=== PATIENT | female | born 1945 | race Caucasian/White ===

== ENCOUNTER 2017-06-06 06:17 | Inpatient (IN) | payer OTHER, BC ==
[~2017-06-06] VITALS: Ht 170.2 cm; Wt 100.7 kg
[2017-06-06 06:44] LABS: HEMATOCRIT 37.5 % (36.0-46.0); MCH 30.1 PG (29.0-34.0); MCHC 32.8 G/DL (30.0-36.0); MCV 91.9 FL (83-99); MEAN PLAT.VOLUME 12.7 uM^3 (9.5-12.4); PLATELET COUNT 168 K/uL (156-360); RBC DIS.WIDTH-SD 47.2 % (39-53); RED BLOOD COUNT 4.08 M/uL (3.80-5.20); WHITE BLOOD COUNT 12.8 K/uL (4.1-10.2)
[2017-06-06 07:05] LABS: CHLORIDE 103 mEq/L (99-109); POTASSIUM 4.6 mEq/L (3.7-5.4); SODIUM 136 mEq/L (136-147)
[2017-06-06 07:06] LABS: GLUCOSE 105 mg/dL (70-99)
[2017-06-06 07:06] LABS: TROP-I INTERPRETATION NEGATIVE; TROPONIN-I 0.02 ng/mL (0.0-0.30)
[2017-06-06 07:08] LABS: ANION GAP 11 MEQ/L (2-14)
[2017-06-06 07:10] LABS: GFR ESTIMATE (CALCULATED) 22 mL/min/
[2017-06-06 07:11] LABS: UREA NITROGEN (BUN) 25 mg/dL (9-23)
[2017-06-06 12:34] LABS: ADD MIUA? YES; BILIRUBIN NEGATIVE; BLOOD NEGATIVE; COLOR YELLOW ((YELLOW)); GLUCOSE (STRIP) NEGATIVE; KETONES NEGATIVE; LEUKOCYTES TRACE; NITRITE POSITIVE; PROTEIN (STRIP) NEGATIVE; SPECIFIC GRAVITY 1.016 (1.000-1.030); UROBILINOGEN 0.2 MG/DL (0.2-1.0)
[2017-06-06 12:40] LABS: CREATINE KINASE 93 IU/L (1-294); TOTAL CK 93 IU/L (1-294)
[2017-06-06 12:44] LABS: BACTERIA 1+ /HPF; EPITHELIAL CELLS RARE /HPF; MUCUS TRACE /LPF; RED BLOOD CELLS 0-5 /HPF (0-5); UCUL ADDED? NO; WHITE BLOOD CELLS 0-5 /HPF (0-5)
[2017-06-06 12:46] LABS: CK-MB 1.2 ng/mL (0.0-4.9)
[2017-06-06] MEDS ORDERED: LASIX40 MG PO (13:25)
[2017-06-06] MEDS ORDERED: ATIVAN1 MG PO (13:28)
[2017-06-06] MEDS ORDERED: HYDROCHLOROTHIA25 MG PO (13:28)
[2017-06-06] MEDS ORDERED: LYRICA50 MG PO ×2 (13:30)
[2017-06-06] MEDS ORDERED: BACTRIM,SEPT1 TABLET PO (13:31)
[2017-06-06] MEDS ORDERED: DOLOPHINE HCL5 MG PO (13:31)
[2017-06-06] MEDS ORDERED: CYANOCOBAL1000 MCG/2 IM (13:33)
[2017-06-06] MEDS ORDERED: CELEBREX200 MG PO (13:34)
[2017-06-06] MEDS ORDERED: PREVACID SOLUTA30 MG PO (13:34)
[2017-06-06] MEDS ORDERED: ERGOCALCIF50000 UNIT PO (13:34)
[2017-06-06] MEDS ORDERED: VENLAFAXINE HC150 M1 PO (13:35)
[2017-06-06] MEDS ORDERED: COZAAR100 MG PO (13:35)
[2017-06-06] MEDS ORDERED: MICRO-K10 ME2 PO (13:36)
[2017-06-06] MEDS ORDERED: LEVOTHYROXINE125 MCG PO (13:36)
[2017-06-06] MEDS ORDERED: TYLENOL REGULA325 MG PO (13:37)
[2017-06-06] MEDS ORDERED: BIONECT TP (13:38)
[2017-06-06] MEDS ORDERED: VENTOLIN HFA18 GM IH (13:38)
[2017-06-06] MEDS ORDERED: SILVER SULFADI400 GM TP (13:41)
[2017-06-06 23:02] LABS: HEMATOCRIT 34.6 % (36.0-46.0); MCHC 32.4 G/DL (30.0-36.0); MCV 92.8 FL (83-99); MEAN PLAT.VOLUME 12.2 uM^3 (9.5-12.4); PLATELET COUNT 196 K/uL (156-360); RBC DIS.WIDTH-SD 47.7 % (39-53); RED BLOOD COUNT 3.73 M/uL (3.80-5.20); WHITE BLOOD COUNT 9.8 K/uL (4.1-10.2)
[2017-06-07] VITALS: BP 140/72
[2017-06-07 04:47] VITALS: BP 136/89
[2017-06-07 07:02] LABS: HEMATOCRIT 33.1 % (36.0-46.0); MCH 30.9 PG (29.0-34.0); MCHC 32.6 G/DL (30.0-36.0); MCV 94.6 FL (83-99); MEAN PLAT.VOLUME 11.6 uM^3 (9.5-12.4); PLATELET COUNT 240 K/uL (156-360); RBC DIS.WIDTH-CV 14.2 % (11.8-14.6); RBC DIS.WIDTH-SD 48.8 % (39-53); WHITE BLOOD COUNT 8.7 K/uL (4.1-10.2)
[2017-06-07 07:32] LABS: ANION GAP 12 MEQ/L (2-14); CHLORIDE 102 MEQ/L (99-109); GFR ESTIMATE (CALCULATED) 37 mL/min/; GLUCOSE 112 mg/dL (70-99); GLUCOSE 114 mg/dL (70-99); POTASSIUM 4.1 MEQ/L (3.7-5.4); POTASSIUM 4.3 MEQ/L (3.7-5.4); SAMPLE HEMOLYSIS CHECK 0; SAMPLE ICTERIC CHECK 0; SAMPLE LIPEMIA CHECK 0; SODIUM 136 MEQ/L (136-147); UREA NITROGEN (BUN) 19 mg/dL (9-23)
[2017-06-07 08:21] VITALS: BP 160/68
[2017-06-07 16:35] VITALS: BP 154/72
[2017-06-07 19:37] VITALS: BP 102/59
[2017-06-07 23:24] VITALS: BP 100/57
[2017-06-08] VITALS (7 sets, daily range): BP systolic 83–141; BP diastolic 45–68
[2017-06-08 07:19] LABS: BASOPHIL COUNT 0.1 K/uL (0-0.1); EOSINOPHIL (%) 3.9 % (0-5); EOSINOPHIL COUNT 0.4 K/uL (0-0.3); HEMATOCRIT 35.1 % (36.0-46.0); IMMATURE GRANULOCYTE (%) 0.4 % (0.0-0.7); INSTRUMENT ABS NEUTROPHIL CT 5.7 K/uL; LYMPHOCYTE COUNT 2.3 K/uL (1.0-2.8); MCH 30.7 PG (29.0-34.0); MCHC 32.2 G/DL (30.0-36.0); MCV 95.4 FL (83-99); MEAN PLAT.VOLUME 11.5 uM^3 (9.5-12.4); MONOCYTE (%) 5.5 % (3-12); MONOCYTE COUNT 0.5 K/uL (0-0.8); NEUTROPHIL (%) 63.9 % (45-76); NEUTROPHIL COUNT 5.7 K/uL (1.8-6.4); PLATELET COUNT 230 K/uL (156-360); RBC DIS.WIDTH-CV 14.2 % (11.8-14.6); RED BLOOD COUNT 3.68 M/uL (3.80-5.20)
[2017-06-08 07:53] LABS: ANION GAP 11 MEQ/L (2-14); CHLORIDE 97 MEQ/L (99-109); GFR ESTIMATE (CALCULATED) 24 mL/min/; GLUCOSE 93 mg/dL (70-99); POTASSIUM 4.7 MEQ/L (3.7-5.4); SAMPLE HEMOLYSIS CHECK 0; SAMPLE ICTERIC CHECK 0; SAMPLE LIPEMIA CHECK 0; SODIUM 132 MEQ/L (136-147)
[2017-06-08 07:56] LABS: UREA NITROGEN (BUN) 29 mg/dL (9-23)
[2017-06-08 08:00] LABS: ANION GAP 11 MEQ/L (2-14); CHLORIDE 98 MEQ/L (99-109); GFR ESTIMATE (CALCULATED) 24 mL/min/; GLUCOSE 93 mg/dL (70-99); POTASSIUM 4.8 MEQ/L (3.7-5.4); SAMPLE HEMOLYSIS CHECK 0; SAMPLE ICTERIC CHECK 0; SAMPLE LIPEMIA CHECK 0; SODIUM 133 MEQ/L (136-147); UREA NITROGEN (BUN) 29 mg/dL (9-23)
[2017-06-09 00:21] VITALS: BP 99/52
[2017-06-09 04:28] VITALS: BP 131/72
[2017-06-09 06:46] LABS: BASOPHIL COUNT 0.1 K/uL (0-0.1); EOSINOPHIL (%) 4.7 % (0-5); EOSINOPHIL COUNT 0.3 K/uL (0-0.3); HEMATOCRIT 30.3 % (36.0-46.0); IMMATURE GRANULOCYTE (%) 0.4 % (0.0-0.7); INSTRUMENT ABS NEUTROPHIL CT 4.5 K/uL; LYMPHOCYTE COUNT 1.6 K/uL (1.0-2.8); MCH 30.1 PG (29.0-34.0); MCHC 32.3 G/DL (30.0-36.0); MCV 92.9 FL (83-99); MEAN PLAT.VOLUME 12.2 uM^3 (9.5-12.4); MONOCYTE (%) 4.5 % (3-12); MONOCYTE COUNT 0.3 K/uL (0-0.8); NEUTROPHIL (%) 66.2 % (45-76); NEUTROPHIL COUNT 4.5 K/uL (1.8-6.4); PLATELET COUNT 168 K/uL (156-360); RBC DIS.WIDTH-CV 13.8 % (11.8-14.6); RBC DIS.WIDTH-SD 47.7 % (39-53); RED BLOOD COUNT 3.26 M/uL (3.80-5.20); WHITE BLOOD COUNT 6.9 K/uL (4.1-10.2)
[2017-06-09 07:17] LABS: ANION GAP 9 MEQ/L (2-14); CHLORIDE 103 MEQ/L (99-109); GFR ESTIMATE (CALCULATED) 37 mL/min/; GLUCOSE 123 mg/dL (70-99); POTASSIUM 3.9 MEQ/L (3.7-5.4); SAMPLE HEMOLYSIS CHECK 0; SAMPLE ICTERIC CHECK 0; SAMPLE LIPEMIA CHECK 0; SODIUM 137 MEQ/L (136-147); UREA NITROGEN (BUN) 25 mg/dL (9-23)
[2017-06-09 08:45] VITALS: BP 129/59
[2017-06-09] MEDS ORDERED: LOVENOX30 MG/0.3 SC (10:58)
[2017-06-09 11:31] LABS: POINT-OF-CARE METER ID UU14117124
[2017-06-09 11:46] VITALS: BP 127/61
[2017-06-09] MEDS ORDERED: MULTIVITAMIN1 EAC2 PO (14:33)
[2017-06-09] MEDS ORDERED: SENOKOT S,PE1 TABLET PO (14:35)
[2017-06-09] MEDS ORDERED: PERCOCET 10/1 TABLET PO (14:35)
[2017-06-09] MEDS ORDERED: LUMIGAN 0.50 DROP/22 BOTH EYES (17:15)
== END 2017-06-09 14:06 | DRG 470 ==
LOC: EME 06:17 → 3EAST 10:34 → EDOF 10:34 → 3EAST 10:34 → ENRESERV 10:39 → 3EAST 16:14
PROVIDERS: Emergency Medicine; Internal Medicine; Internal Medicine Nephrology; Orthopaedic Surgery
PROC: 0SRS0JA Replacement of Left Hip Joint, Femoral Surface with Synthetic Substitute, Uncemented, Open Approach (ICD-10-PCS; principal; 2017-06-06)
DX: S72.012A Unspecified intracapsular fracture of left femur, initial encounter for closed fracture (principal); N17.9 Acute kidney failure, unspecified; I95.9 Hypotension, unspecified; E66.01 Morbid (severe) obesity due to excess calories; D72.829 Elevated white blood cell count, unspecified; Z68.34 Body mass index [BMI] 34.0-34.9, adult; I10 Essential (primary) hypertension; G89.29 Other chronic pain; K29.70 Gastritis, unspecified, without bleeding; T39.395A Adverse effect of other nonsteroidal anti-inflammatory drugs [NSAID], initial encounter; M81.0 Age-related osteoporosis without current pathological fracture; W18.30XA Fall on same level, unspecified, initial encounter; Y92.012 Bathroom of single-family (private) house as the place of occurrence of the external cause; L28.0 Lichen simplex chronicus; M25.519 Pain in unspecified shoulder; M54.2 Cervicalgia; E03.9 Hypothyroidism, unspecified; K21.9 Gastro-esophageal reflux disease without esophagitis; F34.1 Dysthymic disorder; E53.8 Deficiency of other specified B group vitamins; T50.905A Adverse effect of unspecified drugs, medicaments and biological substances, initial encounter; Z98.84 Bariatric surgery status; Z87.891 Personal history of nicotine dependence; Z82.49 Family history of ischemic heart disease and other diseases of the circulatory system; Z79.899 Other long term (current) drug therapy; Z79.891 Long term (current) use of opiate analgesic
CPT/HCPCS: 71010; 73501; 73502; 76770; 80048; 80048 91; 80069; 81003; 82550 91; 82553; 82948; 84484; 85014; 85018; 85025; 85027; 89190; 93005; 93971; 94640; 97530 GO; 99281; 99285; J0690; J1200; J1650; J2250; J2405; J3010; J7030; J7042; S0028

== ENCOUNTER 2017-06-09 11:21 | Inpatient (IN) | payer OTHER, BC ==
[~2017-06-09] VITALS: Ht 170.2 cm; Wt 99.9 kg
[~2017-06-09 11:21] MED LIST: ATIVAN1 MG PO; BACTRIM,SEPT1 TABLET PO; BIONECT TP; CELEBREX200 MG PO; COZAAR100 MG PO; CYANOCOBAL1000 MCG/2 IM; DOLOPHINE HCL5 MG PO; ERGOCALCIF50000 UNIT PO; HYDROCHLOROTHIA25 MG PO; LASIX40 MG PO; LEVOTHYROXINE125 MCG PO; LOVENOX30 MG/0.3 SC; LYRICA50 MG PO; MICRO-K10 ME2 PO; PREVACID SOLUTA30 MG PO; SILVER SULFADI400 GM TP; TYLENOL REGULA325 MG PO; VENLAFAXINE HC150 M1 PO; VENTOLIN HFA18 GM IH
[2017-06-09 14:28] VITALS: BP 146/80
[2017-06-09] MEDS ORDERED: MULTIVITAMIN1 EAC2 PO (14:33)
[2017-06-09] MEDS ORDERED: PERCOCET 10/1 TABLET PO (14:35)
[2017-06-09] MEDS ORDERED: SENOKOT S,PE1 TABLET PO (14:35)
[2017-06-09] MEDS ORDERED: LUMIGAN 0.50 DROP/22 BOTH EYES (17:15)
[2017-06-10 05:10] VITALS: BP 147/69
[2017-06-10 05:59] LABS: HEMATOCRIT 29.7 % (36.0-46.0); MCHC 32.7 G/DL (30.0-36.0); PLATELET COUNT 273 K/uL (156-360); RBC DIS.WIDTH-CV 13.8 % (11.8-14.6); RBC DIS.WIDTH-SD 46.3 % (39-53); RED BLOOD COUNT 3.23 M/uL (3.80-5.20); WHITE BLOOD COUNT 7.3 K/uL (4.1-10.2)
[2017-06-10 06:19] LABS: ALKALINE PHOSPHATASE 96 IU/L (3-129); ANION GAP 8 MEQ/L (2-14); CHLORIDE 104 MEQ/L (99-109); GFR ESTIMATE (CALCULATED) 58 mL/min/; GLUCOSE 97 mg/dL (70-99); POTASSIUM 4.2 MEQ/L (3.7-5.4); SAMPLE HEMOLYSIS CHECK 0; SAMPLE ICTERIC CHECK 0; SAMPLE LIPEMIA CHECK 0; SODIUM 138 MEQ/L (136-147); TOTAL BILIRUBIN 0.5 MG/DL (0.0-1.0); UREA NITROGEN (BUN) 16 mg/dL (9-23)
[2017-06-10 16:00] VITALS: BP 168/77
[2017-06-11 05:51] VITALS: BP 135/65
[2017-06-11] MEDS ORDERED: HYDROCHLOROTHIA25 MG PO (10:07)
[2017-06-11] MEDS ORDERED: PERCOCET 10/1 TABLET PO (10:07)
[2017-06-11] MEDS ORDERED: BACTRIM,SEPT1 TABLET PO (10:07)
== END 2017-06-11 08:25 | disposition left against medical advice (07) | DRG 560 ==
LOC: 3WEST 11:21
PROVIDERS: Physical Medicine & Rehabilitation Pain Medicine
PROC: F07M0ZZ Range of Motion and Joint Mobility Treatment of Musculoskeletal System - Whole Body (ICD-10-PCS; principal; 2017-06-09)
DX: Z47.1 Aftercare following joint replacement surgery (principal); R26.2 Difficulty in walking, not elsewhere classified; Z96.642 Presence of left artificial hip joint; D62 Acute posthemorrhagic anemia; E55.9 Vitamin D deficiency, unspecified; G62.9 Polyneuropathy, unspecified; D72.829 Elevated white blood cell count, unspecified; R01.1 Cardiac murmur, unspecified; L28.0 Lichen simplex chronicus; E03.9 Hypothyroidism, unspecified; G89.29 Other chronic pain; M54.2 Cervicalgia; H40.9 Unspecified glaucoma; I10 Essential (primary) hypertension; K21.9 Gastro-esophageal reflux disease without esophagitis; M81.0 Age-related osteoporosis without current pathological fracture; F32.9 Major depressive disorder, single episode, unspecified; E66.9 Obesity, unspecified; Z68.34 Body mass index [BMI] 34.0-34.9, adult; Z98.84 Bariatric surgery status; Z87.891 Personal history of nicotine dependence
CPT/HCPCS: 71010; 80053; 85027; 99202; J1650